=== PATIENT | female | born 1940 | race Caucasian/White ===

== ENCOUNTER 2017-12-27 19:45 | Inpatient (IN) | payer OTHER ==
[~2017-12-27] VITALS: Ht 172.7 cm; Wt 78.2 kg
[2017-12-27 19:57] VITALS: Ht 172.7 cm; Wt 78.2 kg
[2017-12-27 20:32] LABS: PLATELET COUNT 174 x10^3mcL (130-400)
[2017-12-27 20:33] LABS: BASOPHIL % 2.7 % (0-2); RED CELL DISTRIBUTION WIDTH 14.8 % (11.5-14.5)
[2017-12-27 20:45] LABS: ALKALINE PHOSPHATASE 806 U/L (46-116); ALT/SGPT 285 U/L (14-59); AST/SGOT 498 U/L (15-37); BILIRUBIN TOTAL 2.85 mg/dL (0.20-1.00); CALCIUM 7.6 mg/dL (8.5-10.1); CARBON DIOXIDE 25.8 mmol/L (21-32); CHLORIDE SERUM 107 mmol/L (98-107); CREATININE SERUM 0.8 mg/dL (0.6-1.0); GLUCOSE SERUM 111 mg/dL (74-106); MAGNESIUM 1.6 mg/dL (1.8-2.4); PHOSPHOROUS 2.4 mg/dL (2.5-4.9); SODIUM SERUM 143 mmol/L (136-145)
[2017-12-27 20:51] LABS: FREE T4 3.12 ng/dL (0.76-1.46)
[2017-12-27 20:54] LABS: CHOLESTEROL 85 mg/dL (<200); HDL CHOLESTEROL 34 mg/dL (40-60)
[2017-12-27 20:54] LABS: microscopic required? YES; urine erythrocyte TRACE (NEGATIVE)
[2017-12-27 20:55] LABS: POTASSIUM SERUM 2.4 mmol/L (3.5-5.1); T3 TOTAL 0.61 ng/mL; T4(THYROXINE) 21.5 ug/dL (4.7-13.3)
[2017-12-28] VITALS (7 sets, daily range): BP systolic 127–154; BP diastolic 42–60
[2017-12-28 00:53] LABS: CHOLESTEROL/HDL RATIO 2.8
[2017-12-28 06:57] LABS: AMPHETAMINE QUAL UR NONE DETECTED (See below)
[2017-12-28 07:04] LABS: CALCIUM 7.8 mg/dL (8.5-10.1); CARBON DIOXIDE 26.8 mmol/L (21-32); CHLORIDE SERUM 109 mmol/L (98-107); CREATININE SERUM 0.7 mg/dL (0.6-1.0); GLUCOSE SERUM 99 mg/dL (74-106); MAGNESIUM 1.8 mg/dL (1.8-2.4); POTASSIUM SERUM 3.1 mmol/L (3.5-5.1); SODIUM SERUM 145 mmol/L (136-145)
[2017-12-28 07:16] LABS: BASOPHIL % 0.2 % (0-2); PLATELET COUNT 167 x10^3mcL (130-400)
[2017-12-28 07:20] LABS: RED CELL DISTRIBUTION WIDTH 15.3 % (11.5-14.5)
[2017-12-28] MEDS ORDERED: CLOPIDOGREL75 M1 PO (11:16)
[2017-12-28] MEDS ORDERED: TOPROL XL25 MG PO (11:16)
[2017-12-28] MEDS ORDERED: AMIODARONE HCL200 MG PO (11:28)
[2017-12-28] MEDS ORDERED: FUROSEMIDE40 MG PO (11:30)
[2017-12-28] MEDS ORDERED: LEVOTHYROXINE0.15 M2 PO (11:31)
[2017-12-28] MEDS ORDERED: LEXAPRO20 MG PO (11:31)
[2017-12-28] MEDS ORDERED: GABAPENTIN100 M2 PO (11:32)
[2017-12-28] MEDS ORDERED: ATORVASTATIN CA40 M1 PO (11:33)
[2017-12-28] MEDS ORDERED: ADV100/50 INH (11:34)
[2017-12-29 05:06] VITALS: BP 141/55
[2017-12-29 06:17] LABS: BASOPHIL % 0.2 % (0-2); PLATELET COUNT 153 x10^3mcL (130-400)
[2017-12-29 06:21] LABS: RED CELL DISTRIBUTION WIDTH 16.5 % (11.5-14.5)
[2017-12-29 06:32] LABS: ALBUMIN 2.7 g/dL (3.4-5.0); ALKALINE PHOSPHATASE 579 U/L (46-116); ALT/SGPT 208 U/L (14-59); AST/SGOT 142 U/L (15-37); BILIRUBIN DIRECT 1.86 mg/dL (0.0-0.2); BILIRUBIN TOTAL 2.42 mg/dL (0.20-1.00); CALCIUM 8.3 mg/dL (8.5-10.1); CARBON DIOXIDE 28.6 mmol/L (21-32); CHLORIDE SERUM 106 mmol/L (98-107); CREATININE SERUM 0.8 mg/dL (0.6-1.0); GLUCOSE SERUM 103 mg/dL (74-106); MAGNESIUM 1.8 mg/dL (1.8-2.4); PHOSPHOROUS 3.3 mg/dL (2.5-4.9); POTASSIUM SERUM 3.9 mmol/L (3.5-5.1); SODIUM SERUM 141 mmol/L (136-145); TOTAL PROTEIN, SERUM 5.7 g/dL (6.4-8.2)
[2017-12-29 11:40] VITALS: BP 136/76
[2017-12-29 17:00] VITALS: BP 132/55
[2017-12-29 19:20] VITALS: BP 126/70
[2017-12-29 21:26] VITALS: BP 126/70
[2017-12-29 23:15] VITALS: BP 102/54
[2017-12-30 03:00] VITALS: BP 95/56
[2017-12-30 05:23] LABS: BASOPHIL % 0.1 % (0-2); PLATELET COUNT 163 x10^3mcL (130-400)
[2017-12-30 05:45] LABS: CALCIUM 8.3 mg/dL (8.5-10.1); CARBON DIOXIDE 31.7 mmol/L (21-32); CHLORIDE SERUM 103 mmol/L (98-107); CREATININE SERUM 0.7 mg/dL (0.6-1.0); GLUCOSE SERUM 87 mg/dL (74-106); MAGNESIUM 1.9 mg/dL (1.8-2.4); PHOSPHOROUS 3.7 mg/dL (2.5-4.9); POTASSIUM SERUM 3.8 mmol/L (3.5-5.1); SODIUM SERUM 140 mmol/L (136-145)
[2017-12-30 05:47] LABS: RED CELL DISTRIBUTION WIDTH 16.4 % (11.5-14.5)
[2017-12-30 06:42] VITALS: BP 126/67
[2017-12-30 08:00] VITALS: BP 101/52
== END 2017-12-30 08:30 | disposition short-term general hospital (02) | DRG 444 ==
LOC: ED 19:45 → DU 23:05 → IC 12-29 18:36
PROVIDERS: Emergency Medicine; Family Medicine; Internal Medicine; Internal Medicine Gastroenterology
PROC: 0FC98ZZ Extirpation of Matter from Common Bile Duct, Via Natural or Artificial Opening Endoscopic (ICD-10-PCS; principal; 2017-12-29 08:45)
DX: K80.70 Calculus of gallbladder and bile duct without cholecystitis without obstruction (principal); I71.01 Dissection of thoracic aorta; E44.0 Moderate protein-calorie malnutrition; Q87.40 Marfan syndrome, unspecified; I48.91 Unspecified atrial fibrillation; I10 Essential (primary) hypertension; R74.0 Nonspecific elevation of levels of transaminase and lactic acid dehydrogenase [LDH]; F17.210 Nicotine dependence, cigarettes, uncomplicated; Z68.22 Body mass index [BMI] 22.0-22.9, adult; Z95.1 Presence of aortocoronary bypass graft; Z90.49 Acquired absence of other specified parts of digestive tract; Z79.02 Long term (current) use of antithrombotics/antiplatelets; Z88.2 Allergy status to sulfonamides
CPT/HCPCS: 36600; 43262; 74181; 83880; 84439; C1769; J0696; J1610; J1644; J1940; J1956; J2250; J2704; J3010; J3480; J3490; J7030; J7040; J7050; J7120; Q0092; Q9967

== ENCOUNTER 2018-02-23 17:24 | Inpatient (IN) | payer OTHER ==
[~2018-02-23] VITALS: Ht 185.4 cm; Wt 76.7 kg
[~2018-02-23 17:24] MED LIST: ADV100/50 INH; AMIODARONE HCL200 MG PO; ATORVASTATIN CA40 M1 PO; CLOPIDOGREL75 M1 PO; FUROSEMIDE40 MG PO; GABAPENTIN100 M2 PO; LEVOTHYROXINE0.15 M2 PO; LEXAPRO20 MG PO; TOPROL XL25 MG PO
[2018-02-23 17:28] VITALS: Ht 185.4 cm; Wt 76.7 kg
[2018-02-23 18:40] LABS: PLATELET COUNT 208 x10^3mcL (130-400)
[2018-02-23 18:41] LABS: RED CELL DISTRIBUTION WIDTH 16.4 % (11.5-14.5)
[2018-02-23 18:46] LABS: CALCIUM 7.9 mg/dL (8.5-10.1); CHLORIDE SERUM 108 mmol/L (98-107); CREATININE SERUM 0.9 mg/dL (0.6-1.0); GLUCOSE SERUM 147 mg/dL (74-106); POTASSIUM SERUM 3.2 mmol/L (3.5-5.1); SODIUM SERUM 144 mmol/L (136-145)
[2018-02-23 18:50] LABS: ALBUMIN 3.4 g/dL (3.4-5.0); ALKALINE PHOSPHATASE 146 U/L (46-116); ALT/SGPT 22 U/L (14-59); AST/SGOT 22 U/L (15-37); BILIRUBIN TOTAL 1.44 mg/dL (0.20-1.00); LIPASE 134 IU/L (73-393); TOTAL PROTEIN, SERUM 6.6 g/dL (6.4-8.2)
[2018-02-23 19:08] LABS: BAND NEUTROPHIL 24 % (0-10); BASOPHIL 0 % (0-2); MONOCYTE 6 % (0-7); SEGMENTED NEUTROPHILS 68 % (37-75); rbc morphology (normal/abnorm) ABNORMAL (NORMAL)
[2018-02-23 19:09] LABS: PLATELET MORPHOLOGY PLATELETS NORMAL
[2018-02-23 20:42] LABS: UA SPECIFIC GRAVITY >=1.030 (1.005-1.035); microscopic required? YES; urine erythrocyte 2+ (NEGATIVE)
[2018-02-23] MEDS ORDERED: B-121000 MC2 PO (20:58)
[2018-02-23] MEDS ORDERED: ENTRESTO1 TA2 PO (20:58)
[2018-02-23] MEDS ORDERED: PROAIR RES117 MCG/Ac (20:59)
[2018-02-23 21:43] LABS: T3 TOTAL 0.56 ng/mL
[2018-02-23 21:48] LABS: MAGNESIUM 1.9 mg/dL (1.8-2.4); PHOSPHOROUS 2.8 mg/dL (2.5-4.9)
[2018-02-23 21:52] LABS: CHOLESTEROL/HDL RATIO 1.7
[2018-02-23 21:54] LABS: FREE T4 1.98 ng/dL (0.76-1.46)
[2018-02-23 21:57] LABS: FREE THYROXINE INDEX 5.1 ug/dL (1.4-4.5); T4(THYROXINE) 14.3 ug/dL (4.7-13.3)
[2018-02-23 22:42] VITALS: BP 112/62
[2018-02-23 23:11] VITALS: BP 134/53
[2018-02-24] VITALS (7 sets, daily range): BP systolic 110–128; BP diastolic 51–74
[2018-02-24 03:29] LABS: BILIRUBIN DIRECT 0.57 mg/dL (0.0-0.2); BILIRUBIN TOTAL 1.4 mg/dL (0.20-1.00)
[2018-02-24 06:23] LABS: PLATELET COUNT 181 x10^3mcL (130-400)
[2018-02-24 07:10] LABS: RED CELL DISTRIBUTION WIDTH 16.2 % (11.5-14.5)
[2018-02-24 07:12] LABS: BILIRUBIN DIRECT 0.51 mg/dL (0.0-0.2); BILIRUBIN TOTAL 1.6 mg/dL (0.20-1.00); CALCIUM 8.2 mg/dL (8.5-10.1); CARBON DIOXIDE 23.5 mmol/L (21-32); CHLORIDE SERUM 106 mmol/L (98-107); CREATININE SERUM 0.6 mg/dL (0.6-1.0); GLUCOSE SERUM 102 mg/dL (74-106); POTASSIUM SERUM 3.1 mmol/L (3.5-5.1); SODIUM SERUM 139 mmol/L (136-145)
[2018-02-24 12:48] LABS: BAND NEUTROPHIL 8 % (0-10); BASOPHIL 0 % (0-2); MONOCYTE 2 % (0-7); SEGMENTED NEUTROPHILS 89 % (37-75)
[2018-02-24 12:49] LABS: rbc morphology (normal/abnorm) ABNORMAL (NORMAL)
[2018-02-24 12:50] LABS: PLATELET MORPHOLOGY PLATELETS DECREASED; ovalocyte/elliptocyte 2+
[2018-02-25 04:55] VITALS: BP 106/51
[2018-02-25 06:31] LABS: PLATELET COUNT 205 x10^3mcL (130-400)
[2018-02-25 06:34] LABS: ALKALINE PHOSPHATASE 125 U/L (46-116); ALT/SGPT 29 U/L (14-59); AST/SGOT 21 U/L (15-37); BILIRUBIN TOTAL 1.81 mg/dL (0.20-1.00); CALCIUM 8.2 mg/dL (8.5-10.1); CHLORIDE SERUM 107 mmol/L (98-107); CREATININE SERUM 0.8 mg/dL (0.6-1.0); GLUCOSE SERUM 103 mg/dL (74-106); PHOSPHOROUS 2.5 mg/dL (2.5-4.9); POTASSIUM SERUM 4.2 mmol/L (3.5-5.1); SODIUM SERUM 138 mmol/L (136-145)
[2018-02-25 06:45] LABS: ALBUMIN 2.8 g/dL (3.4-5.0)
[2018-02-25 07:30] LABS: RED CELL DISTRIBUTION WIDTH 16.7 % (11.5-14.5)
[2018-02-25 08:50] VITALS: BP 107/61
[2018-02-25 09:53] LABS: BAND NEUTROPHIL 17 % (0-10); BASOPHIL 0 % (0-2); MONOCYTE 5 % (0-7); SEGMENTED NEUTROPHILS 76 % (37-75)
[2018-02-25 09:55] LABS: PLATELET MORPHOLOGY LARGE PLATELET SEEN; ovalocyte/elliptocyte 1+; rbc morphology (normal/abnorm) ABNORMAL (NORMAL); tear drop cell (dacryocyte) 1+
[2018-02-25 14:06] VITALS: BP 114/56
[2018-02-25 16:30] VITALS: BP 121/55
[2018-02-25 20:28] VITALS: BP 121/52
[2018-02-26 04:59] VITALS: BP 131/48
[2018-02-26 06:48] LABS: CALCIUM 8.2 mg/dL (8.5-10.1); CARBON DIOXIDE 22.8 mmol/L (21-32); CHLORIDE SERUM 107 mmol/L (98-107); CREATININE SERUM 0.8 mg/dL (0.6-1.0); GLUCOSE SERUM 99 mg/dL (74-106); POTASSIUM SERUM 5.3 mmol/L (3.5-5.1); SODIUM SERUM 138 mmol/L (136-145)
[2018-02-26 08:18] VITALS: BP 134/54
[2018-02-26 09:14] LABS: PLATELET COUNT 189 x10^3mcL (130-400)
[2018-02-26 12:23] VITALS: BP 119/74
[2018-02-26 13:00] LABS: ATYPICAL LYMPH 1 %; BAND NEUTROPHIL 1 % (0-10); BASOPHIL 0 % (0-2); MONOCYTE 5 % (0-7); SEGMENTED NEUTROPHILS 84 % (37-75)
[2018-02-26 13:01] LABS: PLATELET MORPHOLOGY PLATELETS DECREASED; burr cell (echinocyte) 3+; rbc morphology (normal/abnorm) ABNORMAL (NORMAL)
[2018-02-26 14:23] VITALS: BP 119/74
[2018-02-26 16:53] VITALS: BP 131/57
[2018-02-26 20:28] VITALS: BP 92/59
[2018-02-27 05:29] VITALS: BP 110/47
[2018-02-27 06:50] LABS: BASOPHIL % 0.1 % (0-2); PLATELET COUNT 213 x10^3mcL (130-400)
[2018-02-27 06:54] LABS: ALKALINE PHOSPHATASE 101 U/L (46-116); ALT/SGPT 19 U/L (14-59); AST/SGOT 12 U/L (15-37); BILIRUBIN DIRECT 0.22 mg/dL (0.0-0.2); BILIRUBIN TOTAL 0.5 mg/dL (0.20-1.00); CALCIUM 8.3 mg/dL (8.5-10.1); CARBON DIOXIDE 26.8 mmol/L (21-32); CHLORIDE SERUM 105 mmol/L (98-107); CREATININE SERUM 0.7 mg/dL (0.6-1.0); GLUCOSE SERUM 83 mg/dL (74-106); POTASSIUM SERUM 3.9 mmol/L (3.5-5.1); SODIUM SERUM 139 mmol/L (136-145)
[2018-02-27 06:58] LABS: ALBUMIN 2.2 g/dL (3.4-5.0); TOTAL PROTEIN, SERUM 5.3 g/dL (6.4-8.2)
[2018-02-27 09:58] VITALS: BP 113/58
[2018-02-27 13:11] VITALS: BP 136/67
[2018-02-27 16:25] VITALS: BP 118/58
[2018-02-27 20:24] VITALS: BP 126/61
[2018-02-28 05:23] VITALS: BP 116/58
[2018-02-28 06:33] LABS: CALCIUM 8.4 mg/dL (8.5-10.1); CARBON DIOXIDE 32.3 mmol/L (21-32); CHLORIDE SERUM 109 mmol/L (98-107); CREATININE SERUM 0.6 mg/dL (0.6-1.0); GLUCOSE SERUM 83 mg/dL (74-106); POTASSIUM SERUM 4.3 mmol/L (3.5-5.1); SODIUM SERUM 144 mmol/L (136-145)
[2018-02-28 06:35] LABS: BASOPHIL % 0.2 % (0-2); PLATELET COUNT 227 x10^3mcL (130-400)
[2018-02-28 10:44] VITALS: BP 102/45
[2018-02-28 14:50] VITALS: BP 115/58
[2018-02-28 18:49] VITALS: BP 114/48
[2018-02-28 20:47] VITALS: BP 136/67
[2018-03-01 04:36] VITALS: BP 118/58
[2018-03-01 07:45] VITALS: BP 116/51
[2018-03-01 07:53] LABS: BASOPHIL % 0.4 % (0-2); PLATELET COUNT 250 x10^3mcL (130-400)
[2018-03-01 07:56] LABS: RED CELL DISTRIBUTION WIDTH 16.3 % (11.5-14.5)
[2018-03-01 08:15] LABS: CALCIUM 8.3 mg/dL (8.5-10.1); CARBON DIOXIDE 31.6 mmol/L (21-32); CHLORIDE SERUM 102 mmol/L (98-107); CREATININE SERUM 0.8 mg/dL (0.6-1.0); GLUCOSE SERUM 84 mg/dL (74-106); POTASSIUM SERUM 3.6 mmol/L (3.5-5.1); SODIUM SERUM 140 mmol/L (136-145)
[2018-03-01 12:37] VITALS: BP 103/43
[2018-03-01 13:22] VITALS: BP 103/43
[2018-03-01 16:41] VITALS: BP 115/59
[2018-03-01 21:26] VITALS: BP 115/52
[2018-03-02] VITALS (7 sets, daily range): BP systolic 99–124; BP diastolic 45–59
[2018-03-02 06:28] LABS: BASOPHIL % 0.5 % (0-2); PLATELET COUNT 298 x10^3mcL (130-400)
[2018-03-02 06:40] LABS: RED CELL DISTRIBUTION WIDTH 16.1 % (11.5-14.5)
[2018-03-02 06:49] LABS: CALCIUM 8.3 mg/dL (8.5-10.1); CARBON DIOXIDE 32.3 mmol/L (21-32); CHLORIDE SERUM 99 mmol/L (98-107); CREATININE SERUM 0.7 mg/dL (0.6-1.0); GLUCOSE SERUM 91 mg/dL (74-106); POTASSIUM SERUM 3.9 mmol/L (3.5-5.1); SODIUM SERUM 137 mmol/L (136-145)
== END 2018-03-02 22:18 | disposition short-term general hospital (02) | DRG 871 ==
LOC: ED 17:24 → DU 21:14
PROVIDERS: Emergency Medicine; Internal Medicine; Radiology Diagnostic Radiology
PROC: 0F9430Z Drainage of Gallbladder with Drainage Device, Percutaneous Approach (ICD-10-PCS; principal; 2018-02-25 07:30)
DX: A41.81 Sepsis due to Enterococcus (principal); I50.43 Acute on chronic combined systolic (congestive) and diastolic (congestive) heart failure; Q87.40 Marfan syndrome, unspecified; E44.0 Moderate protein-calorie malnutrition; K81.0 Acute cholecystitis; N39.0 Urinary tract infection, site not specified; I42.0 Dilated cardiomyopathy; A41.52 Sepsis due to Pseudomonas; A40.8 Other streptococcal sepsis; R65.20 Severe sepsis without septic shock; I11.0 Hypertensive heart disease with heart failure; I48.0 Paroxysmal atrial fibrillation; I25.10 Atherosclerotic heart disease of native coronary artery without angina pectoris; J44.9 Chronic obstructive pulmonary disease, unspecified; D63.8 Anemia in other chronic diseases classified elsewhere; E87.6 Hypokalemia; E78.5 Hyperlipidemia, unspecified; E03.9 Hypothyroidism, unspecified; F17.210 Nicotine dependence, cigarettes, uncomplicated; Z68.24 Body mass index [BMI] 24.0-24.9, adult; Z95.5 Presence of coronary angioplasty implant and graft
CPT/HCPCS: 83880; 84439; 97110-GP; 97530-GP; C1729; C1753; J1940; J2001; J2250; J2270; J2310; J2405; J2543; J3010; J3490; J7030; J7620; Q0092; Q9967

== ENCOUNTER 2018-03-26 19:45 | Inpatient (IN) | payer OTHER ==
[~2018-03-26] VITALS: Ht 185.4 cm; Wt 74.4 kg
[~2018-03-26 19:45] MED LIST changes: +B-121000 MC2 PO; +ENTRESTO1 TA2 PO; +PROAIR RES117 MCG/Ac
[2018-03-26 20:35] LABS: PLATELET COUNT 176 x10^3mcL (130-400)
[2018-03-26 20:38] LABS: BASOPHIL % 0 % (0-2); RED CELL DISTRIBUTION WIDTH 17.1 % (11.5-14.5)
[2018-03-26 21:12] LABS: CALCIUM 8.2 mg/dL (8.5-10.1); CARBON DIOXIDE 23.9 mmol/L (21-32); CHLORIDE SERUM 106 mmol/L (98-107); CREATININE SERUM 0.9 mg/dL (0.6-1.0); GLUCOSE SERUM 128 mg/dL (74-106); POTASSIUM SERUM 3.3 mmol/L (3.5-5.1); SODIUM SERUM 142 mmol/L (136-145)
[2018-03-26 21:20] LABS: ALKALINE PHOSPHATASE 116 U/L (46-116); ALT/SGPT 19 U/L (14-59); AST/SGOT 11 U/L (15-37); BILIRUBIN TOTAL 0.91 mg/dL (0.20-1.00)
[2018-03-26 21:25] LABS: ALBUMIN 3.3 g/dL (3.4-5.0); TOTAL PROTEIN, SERUM 6.3 g/dL (6.4-8.2)
[2018-03-26 23:17] VITALS: BP 99/53
[2018-03-26 23:37] VITALS: Ht 185.4 cm; Wt 74.4 kg
[2018-03-27] VITALS (7 sets, daily range): BP systolic 115–129; BP diastolic 50–60
[2018-03-28 06:24] VITALS: BP 140/69
[2018-03-28 09:09] LABS: BASOPHIL % 0.3 % (0-2); PLATELET COUNT 194 x10^3mcL (130-400)
[2018-03-28 09:20] LABS: RED CELL DISTRIBUTION WIDTH 16.9 % (11.5-14.5)
[2018-03-28 09:53] VITALS: BP 152/74
[2018-03-28 09:54] LABS: CALCIUM 8.1 mg/dL (8.5-10.1); CHLORIDE SERUM 105 mmol/L (98-107); CREATININE SERUM 0.8 mg/dL (0.6-1.0); GLUCOSE SERUM 113 mg/dL (74-106); MAGNESIUM 1.8 mg/dL (1.8-2.4); POTASSIUM SERUM 3.3 mmol/L (3.5-5.1); SODIUM SERUM 141 mmol/L (136-145)
[2018-03-28 14:12] VITALS: BP 138/66
[2018-03-28 16:56] VITALS: BP 134/67
[2018-03-28 19:25] VITALS: BP 143/71
[2018-03-29] VITALS (7 sets, daily range): BP systolic 141–150; BP diastolic 66–74
[2018-03-29 07:36] LABS: BASOPHIL % 0.3 % (0-2); PLATELET COUNT 177 x10^3mcL (130-400)
[2018-03-29 07:37] LABS: RED CELL DISTRIBUTION WIDTH 16.3 % (11.5-14.5)
[2018-03-29 07:40] LABS: CARBON DIOXIDE 24.9 mmol/L (21-32); CHLORIDE SERUM 109 mmol/L (98-107); CREATININE SERUM 0.7 mg/dL (0.6-1.0); GLUCOSE SERUM 87 mg/dL (74-106); POTASSIUM SERUM 3.7 mmol/L (3.5-5.1); SODIUM SERUM 142 mmol/L (136-145)
[2018-03-29] MEDS ORDERED: LEVAQUIN750 MG PO (11:26)
[2018-03-30 05:24] VITALS: BP 139/64
[2018-03-30 07:37] LABS: BASOPHIL % 0.4 % (0-2); PLATELET COUNT 203 x10^3mcL (130-400)
[2018-03-30 07:44] LABS: RED CELL DISTRIBUTION WIDTH 16.4 % (11.5-14.5)
[2018-03-30 07:55] LABS: CALCIUM 8.1 mg/dL (8.5-10.1); CARBON DIOXIDE 23.8 mmol/L (21-32); CHLORIDE SERUM 105 mmol/L (98-107); CREATININE SERUM 0.7 mg/dL (0.6-1.0); GLUCOSE SERUM 97 mg/dL (74-106); MAGNESIUM 1.8 mg/dL (1.8-2.4); PHOSPHOROUS 3.2 mg/dL (2.5-4.9); POTASSIUM SERUM 3.6 mmol/L (3.5-5.1); SODIUM SERUM 139 mmol/L (136-145)
[2018-03-30 09:37] VITALS: BP 148/67
[2018-03-30 13:16] VITALS: BP 144/72
[2018-03-30 17:29] VITALS: BP 110/74
[2018-03-30 21:16] VITALS: BP 137/73
[2018-03-31 06:04] VITALS: BP 133/63
[2018-03-31 07:00] LABS: BASOPHIL % 0.3 % (0-2); PLATELET COUNT 190 x10^3mcL (130-400)
[2018-03-31 07:02] LABS: RED CELL DISTRIBUTION WIDTH 16.3 % (11.5-14.5)
[2018-03-31 07:24] LABS: CALCIUM 8.4 mg/dL (8.5-10.1); CARBON DIOXIDE 24.5 mmol/L (21-32); CHLORIDE SERUM 104 mmol/L (98-107); CREATININE SERUM 0.7 mg/dL (0.6-1.0); GLUCOSE SERUM 102 mg/dL (74-106); PHOSPHOROUS 3.7 mg/dL (2.5-4.9); POTASSIUM SERUM 3.6 mmol/L (3.5-5.1); SODIUM SERUM 140 mmol/L (136-145)
[2018-03-31 09:22] VITALS: BP 135/73
[2018-03-31 13:53] VITALS: BP 121/64
[2018-03-31 15:15] VITALS: BP 121/64; BP 127/59
[2018-03-31 17:12] VITALS: BP 129/59
[2018-03-31 21:49] VITALS: BP 158/74
[2018-04-01 04:10] VITALS: BP 158/74
[2018-04-01 05:40] VITALS: BP 134/63
[2018-04-01 08:23] VITALS: BP 134/65
[2018-04-01 17:12] VITALS: BP 127/59
== END 2018-04-01 20:17 | DRG 871 ==
LOC: ED 19:45 → DU 22:15
PROVIDERS: Emergency Medicine; Family Medicine; General Practice
DX: A41.9 Sepsis, unspecified organism (principal); J18.1 Lobar pneumonia, unspecified organism; J96.01 Acute respiratory failure with hypoxia; J44.1 Chronic obstructive pulmonary disease with (acute) exacerbation; J44.0 Chronic obstructive pulmonary disease with (acute) lower respiratory infection; E44.0 Moderate protein-calorie malnutrition; Q87.40 Marfan syndrome, unspecified; I25.10 Atherosclerotic heart disease of native coronary artery without angina pectoris; I11.0 Hypertensive heart disease with heart failure; I50.9 Heart failure, unspecified; Z68.21 Body mass index [BMI] 21.0-21.9, adult; Z88.2 Allergy status to sulfonamides; F17.200 Nicotine dependence, unspecified, uncomplicated; Z90.49 Acquired absence of other specified parts of digestive tract; I48.91 Unspecified atrial fibrillation; Z79.899 Other long term (current) drug therapy
CPT/HCPCS: 83880; 87804; 97110-GP; 97116-GP; 97530-GP; J0456; J0696; J1940; J2405; J2543; J2765; J2930; J7030; J7613; J7620; J7644; Q0092

== ENCOUNTER 2018-05-04 09:51 | Emergency (ER) | payer OTHER ==
[~2018-05-04] VITALS: Ht 172.7 cm; Wt 71.7 kg
[~2018-05-04 09:51] MED LIST changes: +LEVAQUIN750 MG PO
[2018-05-04 09:57] VITALS: BP 141/60; Ht 172.7 cm; Wt 71.7 kg
== END 2018-05-04 11:48 | disposition home or self-care (01) ==
LOC: ED 09:51
DX: S09.8XXA Other specified injuries of head, initial encounter (principal); I11.0 Hypertensive heart disease with heart failure; I50.9 Heart failure, unspecified; J44.9 Chronic obstructive pulmonary disease, unspecified; Z88.2 Allergy status to sulfonamides; Z88.0 Allergy status to penicillin; W18.39XA Other fall on same level, initial encounter; Y93.89 Activity, other specified; Y92.89 Other specified places as the place of occurrence of the external cause; Y99.8 Other external cause status

== ENCOUNTER 2018-05-14 17:41 | Inpatient (IN) | payer OTHER ==
[~2018-05-14] VITALS: Ht 172.7 cm; Wt 74.8 kg
[2018-05-14 17:54] VITALS: Ht 172.7 cm; Wt 74.8 kg
[2018-05-14 21:17] LABS: PLATELET COUNT 342 x10^3mcL (130-400)
[2018-05-14 21:19] LABS: BASOPHIL % 0 % (0-2); RED CELL DISTRIBUTION WIDTH 15.8 % (11.5-14.5)
[2018-05-14 21:25] LABS: CALCIUM 8.4 mg/dL (8.5-10.1); CARBON DIOXIDE 28.7 mmol/L (21-32); CHLORIDE SERUM 102 mmol/L (98-107); CREATININE SERUM 0.8 mg/dL (0.6-1.0); GLUCOSE SERUM 112 mg/dL (74-106); POTASSIUM SERUM 3.5 mmol/L (3.5-5.1); SODIUM SERUM 140 mmol/L (136-145)
[2018-05-14 21:30] LABS: ALBUMIN 3.1 g/dL (3.4-5.0); ALKALINE PHOSPHATASE 134 U/L (46-116); ALT/SGPT 21 U/L (14-59); AST/SGOT 18 U/L (15-37); BILIRUBIN TOTAL 1.09 mg/dL (0.20-1.00); TOTAL PROTEIN, SERUM 6.6 g/dL (6.4-8.2)
[2018-05-14 22:58] LABS: UA SPECIFIC GRAVITY >=1.030 (1.005-1.035); microscopic required? YES; urine erythrocyte 1+ (NEGATIVE)
[2018-05-15 03:19] LABS: MAGNESIUM 1.9 mg/dL (1.8-2.4); PHOSPHOROUS 3.2 mg/dL (2.5-4.9)
[2018-05-15 03:27] LABS: FREE T4 2.12 ng/dL (0.76-1.46)
[2018-05-15 03:29] LABS: CHOLESTEROL/HDL RATIO 1.9; FREE THYROXINE INDEX 5.5 ug/dL (1.4-4.5); T4(THYROXINE) 15.8 ug/dL (4.7-13.3)
[2018-05-15 03:50] LABS: T3 TOTAL 0.6 ng/mL
[2018-05-15 04:34] VITALS: BP 119/54
[2018-05-15 06:25] LABS: BASOPHIL % 0.1 % (0-2); PLATELET COUNT 245 x10^3mcL (130-400)
[2018-05-15 06:26] LABS: RED CELL DISTRIBUTION WIDTH 15.7 % (11.5-14.5)
[2018-05-15 06:28] VITALS: BP 120/66
[2018-05-15 07:18] LABS: CALCIUM 8.1 mg/dL (8.5-10.1); CARBON DIOXIDE 25.7 mmol/L (21-32); CHLORIDE SERUM 105 mmol/L (98-107); CREATININE SERUM 0.8 mg/dL (0.6-1.0); GLUCOSE SERUM 93 mg/dL (74-106); MAGNESIUM 1.9 mg/dL (1.8-2.4); PHOSPHOROUS 3.3 mg/dL (2.5-4.9); POTASSIUM SERUM 3.5 mmol/L (3.5-5.1); SODIUM SERUM 138 mmol/L (136-145)
[2018-05-15 08:22] VITALS: BP 125/60
[2018-05-15 11:28] VITALS: BP 130/57
[2018-05-15 16:47] LABS: AMPHETAMINE QUAL UR NONE DETECTED (See below)
[2018-05-15 17:34] VITALS: BP 128/64
[2018-05-15 22:31] VITALS: BP 123/57
[2018-05-16 05:51] VITALS: BP 119/50
[2018-05-16 07:14] LABS: CALCIUM 7.9 mg/dL (8.5-10.1); CARBON DIOXIDE 28.4 mmol/L (21-32); CHLORIDE SERUM 104 mmol/L (98-107); CREATININE SERUM 0.8 mg/dL (0.6-1.0); GLUCOSE SERUM 91 mg/dL (74-106); POTASSIUM SERUM 3.5 mmol/L (3.5-5.1); SODIUM SERUM 139 mmol/L (136-145)
[2018-05-16 07:49] LABS: PLATELET COUNT 253 x10^3mcL (130-400)
[2018-05-16 07:50] LABS: BASOPHIL % 0 % (0-2); RED CELL DISTRIBUTION WIDTH 15.9 % (11.5-14.5)
[2018-05-16 08:29] VITALS: BP 119/52
[2018-05-16] MEDS ORDERED: LASIX40 MG PO (11:37)
[2018-05-16 14:22] VITALS: BP 110/42
[2018-05-16 17:53] VITALS: BP 124/52
[2018-05-16 21:01] VITALS: BP 123/79
[2018-05-17 05:59] VITALS: BP 125/50
[2018-05-17 06:28] LABS: BASOPHIL % 0.1 % (0-2); PLATELET COUNT 257 x10^3mcL (130-400)
[2018-05-17 06:33] LABS: RED CELL DISTRIBUTION WIDTH 15.8 % (11.5-14.5)
[2018-05-17 06:50] LABS: CARBON DIOXIDE 26.2 mmol/L (21-32); CHLORIDE SERUM 103 mmol/L (98-107); CREATININE SERUM 0.7 mg/dL (0.6-1.0); GLUCOSE SERUM 95 mg/dL (74-106); POTASSIUM SERUM 3.6 mmol/L (3.5-5.1); SODIUM SERUM 138 mmol/L (136-145)
[2018-05-17 11:15] VITALS: BP 114/55
[2018-05-17 13:34] VITALS: BP 119/59
[2018-05-17 17:20] VITALS: BP 98/46
[2018-05-17 19:30] VITALS: BP 98/54
[2018-05-18] VITALS (7 sets, daily range): BP systolic 92–123; BP diastolic 40–61
[2018-05-18 06:38] LABS: CALCIUM 8.2 mg/dL (8.5-10.1); CARBON DIOXIDE 28.5 mmol/L (21-32); CHLORIDE SERUM 102 mmol/L (98-107); CREATININE SERUM 0.7 mg/dL (0.6-1.0); GLUCOSE SERUM 94 mg/dL (74-106); POTASSIUM SERUM 3.8 mmol/L (3.5-5.1); SODIUM SERUM 137 mmol/L (136-145)
[2018-05-18 06:48] LABS: BASOPHIL % 0.3 % (0-2); PLATELET COUNT 262 x10^3mcL (130-400); RED CELL DISTRIBUTION WIDTH 15.5 % (11.5-14.5)
[2018-05-19 05:46] VITALS: BP 132/53
[2018-05-19 06:20] LABS: BASOPHIL % 0.6 % (0-2); PLATELET COUNT 318 x10^3mcL (130-400)
[2018-05-19 06:32] LABS: RED CELL DISTRIBUTION WIDTH 15.9 % (11.5-14.5)
[2018-05-19 06:37] LABS: CARBON DIOXIDE 30.8 mmol/L (21-32); CHLORIDE SERUM 102 mmol/L (98-107); CREATININE SERUM 0.8 mg/dL (0.6-1.0); GLUCOSE SERUM 92 mg/dL (74-106); POTASSIUM SERUM 3.8 mmol/L (3.5-5.1); SODIUM SERUM 137 mmol/L (136-145)
[2018-05-19 09:37] VITALS: BP 122/53
[2018-05-19 13:46] VITALS: BP 117/47
[2018-05-19] MEDS ORDERED: ZYVOX600 MG PO (14:40)
[2018-05-19] MEDS ORDERED: CIPRO500 MG PO (14:42)
[2018-05-19] MEDS ORDERED: LAC PO (14:42)
[2018-05-19 16:17] VITALS: BP 117/47
[2018-05-19 17:19] VITALS: BP 101/40
== END 2018-05-19 19:12 | DRG 871 ==
LOC: ED 17:41 → DU 05-15 02:12
PROVIDERS: Emergency Medicine; Internal Medicine; ADMIT Family Medicine
DX: A41.9 Sepsis, unspecified organism (principal); I50.43 Acute on chronic combined systolic (congestive) and diastolic (congestive) heart failure; N17.0 Acute kidney failure with tubular necrosis; T85.79XA Infection and inflammatory reaction due to other internal prosthetic devices, implants and grafts, initial encounter; E44.0 Moderate protein-calorie malnutrition; Q87.40 Marfan syndrome, unspecified; I48.2 Chronic atrial fibrillation; I11.0 Hypertensive heart disease with heart failure; R80.9 Proteinuria, unspecified; E03.9 Hypothyroidism, unspecified; D51.9 Vitamin B12 deficiency anemia, unspecified; J44.9 Chronic obstructive pulmonary disease, unspecified; Z68.22 Body mass index [BMI] 22.0-22.9, adult; Y92.89 Other specified places as the place of occurrence of the external cause; Z22.322 Carrier or suspected carrier of Methicillin resistant Staphylococcus aureus
CPT/HCPCS: 83880; 84439; 94150; 97110-GP; J1956; J2270; J2405; J3370; J3490; J7030; J7050; J7620; Q0092

== ENCOUNTER 2018-06-18 00:10 | Inpatient (IN) | payer OTHER ==
[~2018-06-18] VITALS: Ht 172.7 cm; Wt 71.7 kg
[~2018-06-18 00:10] MED LIST changes: +CIPRO500 MG PO; +LAC PO; +LASIX40 MG PO; +ZYVOX600 MG PO
[2018-06-18 00:17] VITALS: Ht 172.7 cm; Wt 71.7 kg
[2018-06-18 02:00] LABS: CALCIUM 8.2 mg/dL (8.5-10.1); CARBON DIOXIDE 27.8 mmol/L (21-32); CHLORIDE SERUM 108 mmol/L (98-107); GLUCOSE SERUM 103 mg/dL (74-106); POTASSIUM SERUM 3.5 mmol/L (3.5-5.1); SODIUM SERUM 144 mmol/L (136-145)
[2018-06-18 02:04] LABS: UA SPECIFIC GRAVITY 1.015 (1.005-1.035); microscopic required? YES; urine erythrocyte TRACE (NEGATIVE)
[2018-06-18 02:04] LABS: ALKALINE PHOSPHATASE 113 U/L (46-116); ALT/SGPT 21 U/L (14-59); AST/SGOT 17 U/L (15-37); BILIRUBIN TOTAL 0.71 mg/dL (0.20-1.00); LIPASE 176 IU/L (73-393)
[2018-06-18 02:19] LABS: BASOPHIL % 0.3 % (0-2); PLATELET COUNT 343 x10^3mcL (130-400); RED CELL DISTRIBUTION WIDTH 18.1 % (11.5-14.5)
[2018-06-18 02:20] LABS: ALBUMIN 2.7 g/dL (3.4-5.0); TOTAL PROTEIN, SERUM 5.8 g/dL (6.4-8.2)
[2018-06-18 04:06] LABS: AMPHETAMINE QUAL UR NONE DETECTED (See below)
[2018-06-18 06:32] VITALS: BP 135/51
[2018-06-18 08:31] VITALS: BP 133/54
[2018-06-18 12:19] VITALS: BP 137/61
[2018-06-18 14:02] VITALS: BP 137/61
[2018-06-18 16:40] VITALS: BP 129/63
[2018-06-18 22:04] VITALS: BP 146/54
[2018-06-19 05:29] VITALS: BP 121/48
[2018-06-19 05:59] LABS: BASOPHIL % 0.4 % (0-2); PLATELET COUNT 317 x10^3mcL (130-400)
[2018-06-19 06:10] LABS: CALCIUM 8.4 mg/dL (8.5-10.1); CARBON DIOXIDE 25.9 mmol/L (21-32); CHLORIDE SERUM 107 mmol/L (98-107); CREATININE SERUM 0.9 mg/dL (0.6-1.0); GLUCOSE SERUM 86 mg/dL (74-106); PHOSPHOROUS 3.7 mg/dL (2.5-4.9); POTASSIUM SERUM 3.4 mmol/L (3.5-5.1); SODIUM SERUM 143 mmol/L (136-145)
[2018-06-19 06:14] LABS: RED CELL DISTRIBUTION WIDTH 18.1 % (11.5-14.5)
[2018-06-19 08:53] VITALS: BP 108/44
[2018-06-19 13:08] VITALS: BP 109/42
[2018-06-19 17:42] VITALS: BP 105/51
[2018-06-19 20:27] VITALS: BP 112/56
[2018-06-20 05:36] VITALS: BP 120/60
[2018-06-20 06:31] LABS: BASOPHIL % 0.3 % (0-2); PLATELET COUNT 316 x10^3mcL (130-400)
[2018-06-20 06:39] LABS: RED CELL DISTRIBUTION WIDTH 18.6 % (11.5-14.5)
[2018-06-20 07:05] LABS: CALCIUM 8.1 mg/dL (8.5-10.1); CARBON DIOXIDE 28.1 mmol/L (21-32); CHLORIDE SERUM 106 mmol/L (98-107); GLUCOSE SERUM 83 mg/dL (74-106); MAGNESIUM 1.9 mg/dL (1.8-2.4); PHOSPHOROUS 3.3 mg/dL (2.5-4.9); POTASSIUM SERUM 3.2 mmol/L (3.5-5.1); SODIUM SERUM 142 mmol/L (136-145)
[2018-06-20 08:55] VITALS: BP 130/57
[2018-06-20 09:15] VITALS: BP 130/57
[2018-06-20 13:01] VITALS: BP 106/43
[2018-06-20 17:52] VITALS: BP 116/52
[2018-06-20 20:50] VITALS: BP 123/54
[2018-06-21] VITALS (8 sets, daily range): BP systolic 118–133; BP diastolic 42–59
[2018-06-21 07:35] LABS: BASOPHIL % 0.4 % (0-2); PLATELET COUNT 295 x10^3mcL (130-400)
[2018-06-21 07:47] LABS: RED CELL DISTRIBUTION WIDTH 19.2 % (11.5-14.5)
[2018-06-21 08:19] LABS: CALCIUM 8.6 mg/dL (8.5-10.1); CARBON DIOXIDE 25.8 mmol/L (21-32); CHLORIDE SERUM 104 mmol/L (98-107); GLUCOSE SERUM 87 mg/dL (74-106); MAGNESIUM 2.1 mg/dL (1.8-2.4); POTASSIUM SERUM 3.9 mmol/L (3.5-5.1); SODIUM SERUM 141 mmol/L (136-145)
[2018-06-21] MEDS ORDERED: VANCO 1 GR1 GM/150 M IV (10:07)
[2018-06-21] MEDS ORDERED: LEVAQUIN750 MG PO (10:11)
[2018-06-22 05:18] VITALS: BP 107/46
[2018-06-22 08:48] VITALS: BP 132/50
[2018-06-22 12:46] VITALS: BP 120/42
[2018-06-22 16:45] VITALS: BP 124/52
[2018-06-22 21:30] VITALS: BP 101/40
[2018-06-23 05:24] VITALS: BP 114/44
[2018-06-23 07:00] LABS: BASOPHIL % 0.2 % (0-2); PLATELET COUNT 265 x10^3mcL (130-400)
[2018-06-23 07:03] LABS: RED CELL DISTRIBUTION WIDTH 18.8 % (11.5-14.5)
[2018-06-23 07:18] LABS: CALCIUM 8.1 mg/dL (8.5-10.1); CARBON DIOXIDE 33.5 mmol/L (21-32); CHLORIDE SERUM 103 mmol/L (98-107); GLUCOSE SERUM 87 mg/dL (74-106); POTASSIUM SERUM 4.1 mmol/L (3.5-5.1); SODIUM SERUM 142 mmol/L (136-145)
[2018-06-23 08:30] VITALS: BP 101/36
[2018-06-23 12:59] VITALS: BP 97/50
[2018-06-23 16:00] VITALS: BP 97/44
[2018-06-23 20:48] VITALS: BP 130/51
[2018-06-24 05:09] VITALS: BP 114/51
[2018-06-24 10:05] VITALS: BP 124/77
[2018-06-24 13:28] VITALS: BP 128/59
[2018-06-24 18:30] VITALS: BP 135/58
[2018-06-24 21:13] VITALS: BP 114/48
[2018-06-25] VITALS (8 sets, daily range): BP systolic 108–131; BP diastolic 47–72
[2018-06-25 07:15] LABS: BASOPHIL % 0.2 % (0-2); PLATELET COUNT 225 x10^3mcL (130-400)
[2018-06-25 07:22] LABS: RED CELL DISTRIBUTION WIDTH 19.3 % (11.5-14.5)
[2018-06-25 07:33] LABS: CALCIUM 8.2 mg/dL (8.5-10.1); CARBON DIOXIDE 32.9 mmol/L (21-32); CHLORIDE SERUM 103 mmol/L (98-107); CREATININE SERUM 0.9 mg/dL (0.6-1.0); GLUCOSE SERUM 81 mg/dL (74-106); POTASSIUM SERUM 3.9 mmol/L (3.5-5.1); SODIUM SERUM 140 mmol/L (136-145)
[2018-06-26 05:18] VITALS: BP 112/50
[2018-06-26 09:30] VITALS: BP 107/44
[2018-06-26 10:53] VITALS: BP 107/44
[2018-06-26 17:15] VITALS: BP 129/52
[2018-06-26 21:04] VITALS: BP 141/68
[2018-06-27 06:03] VITALS: BP 129/64
[2018-06-27 08:12] LABS: BASOPHIL % 0.1 % (0-2); PLATELET COUNT 251 x10^3mcL (130-400)
[2018-06-27 08:13] LABS: RED CELL DISTRIBUTION WIDTH 17.7 % (11.5-14.5)
[2018-06-27 08:17] LABS: CALCIUM 8.3 mg/dL (8.5-10.1); CARBON DIOXIDE 32.2 mmol/L (21-32); CHLORIDE SERUM 100 mmol/L (98-107); CREATININE SERUM 0.9 mg/dL (0.6-1.0); GLUCOSE SERUM 126 mg/dL (74-106); POTASSIUM SERUM 3.5 mmol/L (3.5-5.1); SODIUM SERUM 137 mmol/L (136-145)
[2018-06-27 09:09] VITALS: BP 127/64
[2018-06-27 12:45] VITALS: BP 135/63
[2018-06-27 17:18] VITALS: BP 137/66
[2018-06-28] VITALS (7 sets, daily range): BP systolic 87–132; BP diastolic 32–58
[2018-06-28 07:13] LABS: PLATELET COUNT 217 x10^3mcL (130-400)
[2018-06-28 08:24] LABS: CALCIUM 8.2 mg/dL (8.5-10.1); CARBON DIOXIDE 30.4 mmol/L (21-32); CHLORIDE SERUM 98 mmol/L (98-107); CREATININE SERUM 0.9 mg/dL (0.6-1.0); GLUCOSE SERUM 97 mg/dL (74-106); POTASSIUM SERUM 3.3 mmol/L (3.5-5.1); SODIUM SERUM 134 mmol/L (136-145)
[2018-06-28 18:09] LABS: BAND NEUTROPHIL 2 % (0-10); BASOPHIL 0 % (0-2); MONOCYTE 4 % (0-7); SEGMENTED NEUTROPHILS 90 % (37-75)
[2018-06-28 18:10] LABS: rbc morphology (normal/abnorm) ABNORMAL (NORMAL)
[2018-06-29 04:52] VITALS: BP 101/49
[2018-06-29 07:45] LABS: PLATELET COUNT 215 x10^3mcL (130-400)
[2018-06-29 07:50] LABS: RED CELL DISTRIBUTION WIDTH 19.2 % (11.5-14.5)
[2018-06-29 07:57] LABS: CALCIUM 8.2 mg/dL (8.5-10.1); CARBON DIOXIDE 30.6 mmol/L (21-32); CHLORIDE SERUM 97 mmol/L (98-107); CREATININE SERUM 1.2 mg/dL (0.6-1.0); GLUCOSE SERUM 86 mg/dL (74-106); POTASSIUM SERUM 3.4 mmol/L (3.5-5.1); SODIUM SERUM 130 mmol/L (136-145)
[2018-06-29 08:54] VITALS: BP 116/55
[2018-06-29 09:52] VITALS: BP 116/55
[2018-06-29 09:52] LABS: BAND NEUTROPHIL 0 % (0-10); BASOPHIL 0 % (0-2); MONOCYTE 2 % (0-7); SEGMENTED NEUTROPHILS 95 % (37-75)
[2018-06-29 09:54] LABS: PLATELET MORPHOLOGY PLATELETS DECREASED; ovalocyte/elliptocyte 2+; rbc morphology (normal/abnorm) ABNORMAL (NORMAL)
[2018-06-29 13:59] VITALS: BP 107/53
[2018-06-29 16:54] VITALS: BP 97/46
[2018-06-29 20:24] VITALS: BP 106/49
[2018-06-30 06:06] VITALS: BP 115/53
[2018-06-30 06:24] LABS: PLATELET COUNT 217 x10^3mcL (130-400)
[2018-06-30 06:25] LABS: BASOPHIL % 0 % (0-2); RED CELL DISTRIBUTION WIDTH 18.8 % (11.5-14.5)
[2018-06-30 06:56] LABS: CALCIUM 8.1 mg/dL (8.5-10.1); CARBON DIOXIDE 30.2 mmol/L (21-32); CHLORIDE SERUM 101 mmol/L (98-107); GLUCOSE SERUM 84 mg/dL (74-106); MAGNESIUM 1.9 mg/dL (1.8-2.4); PHOSPHOROUS 3.5 mg/dL (2.5-4.9); POTASSIUM SERUM 3.5 mmol/L (3.5-5.1); SODIUM SERUM 137 mmol/L (136-145)
[2018-06-30 08:50] VITALS: BP 96/47
[2018-06-30 12:20] VITALS: BP 100/42
[2018-06-30 13:03] VITALS: BP 100/42
[2018-06-30 17:05] VITALS: BP 105/55
[2018-06-30 20:55] VITALS: BP 105/49
[2018-07-01 05:11] VITALS: BP 112/46
[2018-07-01 07:18] LABS: PLATELET COUNT 239 x10^3mcL (130-400)
[2018-07-01 07:25] LABS: BASOPHIL % 0 % (0-2); RED CELL DISTRIBUTION WIDTH 18.9 % (11.5-14.5)
[2018-07-01 07:49] LABS: CALCIUM 7.9 mg/dL (8.5-10.1); CHLORIDE SERUM 101 mmol/L (98-107); CREATININE SERUM 0.9 mg/dL (0.6-1.0); GLUCOSE SERUM 84 mg/dL (74-106); MAGNESIUM 1.8 mg/dL (1.8-2.4); PHOSPHOROUS 3.7 mg/dL (2.5-4.9); SODIUM SERUM 138 mmol/L (136-145)
[2018-07-01 08:11] LABS: POTASSIUM SERUM 2.9 mmol/L (3.5-5.1)
[2018-07-01 09:00] VITALS: BP 105/43
[2018-07-01 13:12] VITALS: BP 106/45
== END 2018-07-01 14:05 | DRG 252 ==
LOC: ED 00:10 → DU 03:16
PROVIDERS: Emergency Medicine; General Practice; Surgery; ADMIT Internal Medicine
PROC: B410YZZ Fluoroscopy of Abdominal Aorta using Other Contrast (ICD-10-PCS; principal; 2018-06-25 13:15)
PROC: 047K3DZ Dilation of Right Femoral Artery with Intraluminal Device, Percutaneous Approach (ICD-10-PCS; 2018-06-25 13:15)
PROC: B41FYZZ Fluoroscopy of Right Lower Extremity Arteries using Other Contrast (ICD-10-PCS; 2018-06-25 13:15)
DX: I96 Gangrene, not elsewhere classified (principal); J96.01 Acute respiratory failure with hypoxia; E43 Unspecified severe protein-calorie malnutrition; I50.41 Acute combined systolic (congestive) and diastolic (congestive) heart failure; I71.02 Dissection of abdominal aorta; N39.0 Urinary tract infection, site not specified; Q87.40 Marfan syndrome, unspecified; L89.612 Pressure ulcer of right heel, stage 2; I11.0 Hypertensive heart disease with heart failure; B95.62 Methicillin resistant Staphylococcus aureus infection as the cause of diseases classified elsewhere; J44.9 Chronic obstructive pulmonary disease, unspecified; B96.89 Other specified bacterial agents as the cause of diseases classified elsewhere; Z87.891 Personal history of nicotine dependence
CPT/HCPCS: 83880; 87804; 97110-GP; 97116-GP; 97164; 97530-GP; C1760; C1769; C1887; C1894; J1200; J1644; J1885; J1940; J1956; J2001; J2250; J2405; J2543; J3010; J3370; J3420; J7030; J7050; J7620; J7633; Q0092; Q9967